=== PATIENT | female | born 1970 | race Two or more races ===

== ENCOUNTER 2018-01-30 07:41 | Outpatient (CLI) | payer OTHER | END 2018-01-30 07:47 | disposition home or self-care (01) | LOC: SONOGRAMA 07:41 | DX: E04.2 Nontoxic multinodular goiter (principal) ==

== ENCOUNTER → 2023-07-16 | Day surgery (SDC) | payer OTHER ==
[~2023-07-16] MED LIST: DIPHENHYDRAMINE HCL 50 MG/ML VIAL 1ML IV ONE; MIDAZOLAM HCL 2 MG/2 ML VIAL IV ONE; fentaNYL CITRATE 50 MCG/ML AMPUL IV PUSH ONE
== END | disposition home or self-care (01) ==
LOC: ADM 07-08 13:45 → AMB-ENDOS 06:20
PROVIDERS: ATTEND Colon & Rectal Surgery
DX: Z12.11 Encounter for screening for malignant neoplasm of colon (principal); R19.5 Other fecal abnormalities; Z91.041 Radiographic dye allergy status